=== PATIENT | male | born 1930 | race Caucasian/White ===

== ENCOUNTER 2017-03-24 06:33 | Inpatient (IN) | payer OTHER ==
[~2017-03-24] VITALS: Ht 167.6 cm; Wt 82.6 kg
[2017-03-24] MEDS ORDERED: cefOXitin SODIUM 2 GM in D5W 100 ML IV ONE (07:00)
[2017-03-24] MEDS ORDERED: ALVIMOPAN 12 MG CAPSULE PO ONE ×2 (07:00→08:02)
[2017-03-24] MEDS ORDERED: CEFAZOLIN 1 GM IVPB PREMIX 50 ML IV ONE (09:29)
[2017-03-24] MEDS ORDERED: ROCURONIUM BROMIDE 10 MG/ML (ZEMURON) IV ONE (09:29)
[2017-03-24] MEDS ORDERED: NEOSTIGMINE METHYLSULFATE 1 MG/ML, 10 ML VIAL IVP ONE (09:29)
[2017-03-24] MEDS ORDERED: SEVOFLURANE 15 MIN GAS INH ONE (09:29)
[2017-03-24] MEDS ORDERED: KETOROLAC TROMETHAMINE 30 MG VIAL IVP ONE (09:29)
[2017-03-24] MEDS ORDERED: PROPOFOL 200MG/ 20ML VIAL (DIPRIVAN) IV ONE (09:29)
[2017-03-24] MEDS ORDERED: fentaNYL CITRATE 250 MCG/5 ML AMP IV ONE (09:29)
[2017-03-24] MEDS ORDERED: LR 1,000 ML IV.SOLN IV ONE (09:29)
[2017-03-24] MEDS ORDERED: GLYCOPYRROLATE 0.2 MG/ML VIAL IJ ONE (09:29)
[2017-03-24] MEDS ORDERED: WATER FOR IRRIGATION,STERILE 1,000 ML IRRIG.SOLN IR ONE (09:29)
[2017-03-24] MEDS ORDERED: MIDAZOLAM HCL 5 MG/5 ML VIAL IVP ONE (09:29)
[2017-03-24] MEDS ORDERED: GLYB5TAB7 PO (09:49)
[2017-03-24] MEDS ORDERED: DILT300T10 PO (09:49)
[2017-03-24] MEDS ORDERED: LIP20 PO (09:49)
[2017-03-24] MEDS ORDERED: LISI40TA4 PO (09:49)
[2017-03-24] MEDS ORDERED: LR 1,000 ML IV SCH (10:07)
[2017-03-24] MEDS ORDERED: MEPERIDINE HCL/PF 25 MG/ML DISP.SYRIN IVP PRN ×2 (10:15)
[2017-03-24] MEDS ORDERED: ONDANSETRON HCL 4 MG/2 ML VIAL IVP PRN ×2 (10:15→12:30)
[2017-03-24] MEDS ORDERED: HYDROmorphone 2 MG/ML VIAL IVP PRN ×2 (10:15)
[2017-03-24] MEDS ORDERED: HYDROmorphone 1 MG INJ. 1 MG/ML AMPUL IVP PRN ×2 (10:15→12:30)
[2017-03-24] MEDS ORDERED: ACETAMINOPHEN 325 MG TABLET PO PRN (12:30)
[2017-03-24] MEDS ORDERED: HYDROcodone/ACETAMIN 5-325 MG TAB (NORCO/ VICODIN) PO PRN ×2 (12:30)
[2017-03-24 13:20] VITALS: BP_SYST 138
[2017-03-24 13:34] LABS: HEMATOCRIT 39.3 % (36-54)
[2017-03-24 13:44] LABS: ANION GAP 12 (5-15); CHLORIDE 104 mmol/L (98-107); CREATININE 2.22 mg/dL (0.55-1.30); GLUCOSE 212 mg/dL (70-99); POTASSIUM 5.2 mmol/L (3.5-5.1); SODIUM SERUM 137 mmol/L (136-145); UREA NITROGEN, BLOOD 27 mg/dL (8-21)
[2017-03-24 16:35] VITALS: BP_SYST 142
[2017-03-24] MEDS: D5/0.45 NS 1,000 ML IV SCH (17:50)
[2017-03-24 17:54] VITALS: BP_SYST 138
[2017-03-24] MEDS ORDERED: FLU VACC QS 2017-18(36MOS+)/PF 0.5 ML/SYR SYRINGE I.M. PRN (18:45)
[2017-03-24 21:00] VITALS: BP_SYST 128
[2017-03-24] MEDS: cefOXitin SODIUM 2 GM in D5W 100 ML IV SCH (23:34)
[2017-03-24] MEDS: FAMOTIDINE PF 20 MG/2 ML VIAL IVP SCH (23:43)
[2017-03-25] MEDS: ALVIMOPAN 12 MG CAPSULE PO SCH ×3 (00:10→21:19)
[2017-03-25 00:26] VITALS: BP_SYST 130
[2017-03-25 06:16] LABS: HEMATOCRIT 35.9 % (36-54); LYMPHOCYTES # (AUTO) 0.8 K/uL (1.0-5.5); MEAN CORPUSCULAR HEMOGLOBIN 32 pg (27-31); MEAN CORPUSCULAR HGB CONC 33 % (32-36); MEAN CORPUSCULAR VOLUME 95 fL (79.0-98.0); MONOCYTES # (AUTO) 0.6 K/uL (0.0-1.0); MONOCYTES % (AUTO) 6.2 % (1.7-9.3); NEUTROPHILS # (AUTO) 8.9 K/uL (1.8-7.7); NEUTROPHILS % (AUTO) 85.8 % (40.0-70.0); PLATELET COUNT (AUTO) 171 K/uL (130-430); RED BLOOD CELL COUNT(AUTO) 3.79 MIL/uL (4.2-6.2); RED CELL DISTRIBUTION WIDTH 12.4 % (9.0-15.0); WHITE BLOOD COUNT (AUTO) 10.3 K/uL (4.8-10.8)
[2017-03-25 06:22] VITALS: BP_SYST 139
[2017-03-25 06:46] LABS: ALANINE AMINOTRANSFERASE 20 U/L (12-78); ALBUMIN 3.4 g/dL (3.4-4.8); ANION GAP 11 (5-15); ASPARTATE AMINOTRANSFERASE 16 U/L (10-37); CALCIUM 9.3 mg/dL (8.4-11.0); CHLORIDE 102 mmol/L (98-107); CREATININE 1.76 mg/dL (0.55-1.30); GLUCOSE 230 mg/dL (70-99); POTASSIUM 4.3 mmol/L (3.5-5.1); SODIUM SERUM 134 mmol/L (136-145); TOTAL BILIRUBIN 0.7 mg/dL (0.0-1.0); UREA NITROGEN, BLOOD 24 mg/dL (8-21)
[2017-03-25 09:23] VITALS: BP_SYST 139
[2017-03-25] MEDS: ENOXAPARIN SODIUM 30 MG/0.3 ML SYRINGE SUBCUT SCH (09:59)
[2017-03-25] MEDS: cefOXitin SODIUM 2 GM in D5W 100 ML IV SCH (10:31)
[2017-03-25] MEDS: FAMOTIDINE PF 20 MG/2 ML VIAL IVP SCH ×2 (10:31→21:18)
[2017-03-25 11:36] VITALS: BP_SYST 148
[2017-03-25] MEDS: METOCLOPRAMIDE HCL 10 MG/2 ML VIAL IVP SCH ×2 (12:41→18:09)
[2017-03-25 15:30] VITALS: BP_SYST 138
[2017-03-25 21:13] VITALS: BP_SYST 143
[2017-03-25] MEDS: D5/0.45 NS 1,000 ML IV SCH (21:17)
[2017-03-26] MEDS: METOCLOPRAMIDE HCL 10 MG/2 ML VIAL IVP SCH ×3 (00:24→11:32)
[2017-03-26 01:06] VITALS: BP_SYST 147
[2017-03-26 05:29] VITALS: BP_SYST 136
[2017-03-26 08:44] VITALS: BP_SYST 129
[2017-03-26] MEDS: ALVIMOPAN 12 MG CAPSULE PO SCH (09:45)
[2017-03-26] MEDS: ENOXAPARIN SODIUM 30 MG/0.3 ML SYRINGE SUBCUT SCH (09:45)
[2017-03-26] MEDS: FAMOTIDINE PF 20 MG/2 ML VIAL IVP SCH (09:55)
[2017-03-26] MEDS: D5/0.45 NS 1,000 ML IV SCH (09:56)
[2017-03-26] MEDS ORDERED: glyBURIDE 5 MG TABLET PO ONE (10:30)
[2017-03-26] MEDS ORDERED: DILTIAZEM HCL 300 MG PO SCH (10:30)
[2017-03-26 12:54] VITALS: BP_SYST 138
[2017-03-26 16:29] VITALS: BP_SYST 132
[2017-03-26] MEDS ORDERED: DILTIAZEM HCL 180 MG CAP.SR.24H PO ONE (16:45)
[2017-03-26] MEDS ORDERED: DILTIAZEM HCL 120 MG CAP.SR.24H PO ONE (16:45)
[2017-03-26 16:58] VITALS: BP_SYST 132
[2017-03-26] MEDS ORDERED: ATORVASTATIN 20 MG TABLET PO SCH (21:00)
[2017-03-27] MEDS ORDERED: LISINOPRIL 20 MG TABLET PO SCH (09:00)
[2017-03-27] MEDS ORDERED: DILTIAZEM HCL 120 MG CAP.SR.24H PO SCH (09:00)
[2017-03-27] MEDS ORDERED: DILTIAZEM HCL 180 MG CAP.SR.24H PO SCH (09:00)
[2017-03-27] MEDS ORDERED: glyBURIDE 5 MG TABLET PO SCH (09:00)
== END 2017-03-26 17:05 | disposition home or self-care (01) | DRG 331 ==
LOC: SMU 06:33
PROVIDERS: ADMIT Colon & Rectal Surgery; ATTEND Colon & Rectal Surgery
PROC: 0DJD8ZZ Inspection of Lower Intestinal Tract, Via Natural or Artificial Opening Endoscopic (ICD-10-PCS; 2017-03-24)
PROC: 0DTN4ZZ Resection of Sigmoid Colon, Percutaneous Endoscopic Approach (ICD-10-PCS; principal; 2017-03-24 09:00)
DX: C18.7 Malignant neoplasm of sigmoid colon (principal); E11.22 Type 2 diabetes mellitus with diabetic chronic kidney disease; I12.9 Hypertensive chronic kidney disease with stage 1 through stage 4 chronic kidney disease, or unspecified chronic kidney disease; N18.9 Chronic kidney disease, unspecified
CPT/HCPCS: 36415; 80048; 80053; 82962; 85018-TC; 85025; 87081; 88307; 97110-GP; 97116-GP; 97530-GP; C1727; J0690; J0694; J1650; J1885; J2250; J2704; J2710; J2765; J3010; J3490; J7060; J7120; Q2037